=== PATIENT | male | born 1960 | race Caucasian/White ===

== ENCOUNTER 2016-07-15 01:35 | Emergency (ER) | payer OTHER ==
[~2016-07-15] VITALS: Ht 175.3 cm; Wt 76.8 kg
[~2016-07-15 01:35] MED LIST: ACETAMINOPHEN-120 ML PO; ALBUTEROL SULF8.5 GM IH; CITALOPRAM HBR20 MG PO; CLEOCIN150 MG PO; FLOVENT DISKUS1 DIS2 IH; FOLIC ACID; LIBRIUM25 MG PO; OXYCODONE H5 MG/5 ML PO; PEN-VEE K,VEET500 MG PO; PERIDEX1 ML MM; PREDNISONE10 MG PO; PREDNISONE20 MG PO; PROVENTIL,2.5 MG/3 M IH; THIAMINE HCL100 MG PO; TORADOL10 MG PO; VENTOLIN HFA18 GM IH; ZITHROMAX Z-PA250 MG PO
[2016-07-15 01:39] VITALS: BP 118/78
== END 2016-07-15 02:45 | disposition left against medical advice (07) ==
LOC: EME 01:35
DX: M79.661 Pain in right lower leg (principal); Z53.21 Procedure and treatment not carried out due to patient leaving prior to being seen by health care provider
CPT/HCPCS: 93971

== ENCOUNTER → 2016-08-20 12:40 | Emergency (ER) | payer OTHER ==
[~2016-08-20] VITALS: Ht 175.3 cm; Wt 74.1 kg
[~2016-08-20 12:40] MED LIST changes: +FLOVENT DISKUS1 DISK IH; +MOTRIN800 MG PO; +NEURONTIN100 MG PO; +NORVASC10 MG PO; +ROBAXIN500 MG PO; +ULTRAM50 MG PO; +ZESTRIL10 MG PO
[2016-08-20 12:47] VITALS: BP 100/69
== END | disposition left against medical advice (07) ==
LOC: EME 12:40
DX: M79.641 Pain in right hand (principal); Z91.81 History of falling; F10.99 Alcohol use, unspecified with unspecified alcohol-induced disorder; Z53.21 Procedure and treatment not carried out due to patient leaving prior to being seen by health care provider

== ENCOUNTER 2016-08-24 14:15 | Inpatient (IN) | payer OTHER ==
[~2016-08-24] VITALS: Ht 177.8 cm; Wt 71.0 kg
[~2016-08-24 14:15] MED LIST changes: -FLOVENT DISKUS1 DISK IH; -MOTRIN800 MG PO; -NEURONTIN100 MG PO; -NORVASC10 MG PO; -ROBAXIN500 MG PO; -ULTRAM50 MG PO; -ZESTRIL10 MG PO
[2016-08-24 15:34] LABS: EOSINOPHIL (%) 0.3 % (0-5); HEMATOCRIT 42.6 % (38.0-50.0); IMMATURE GRANULOCYTE (%) 0.2 % (0.0-0.7); IMMATURE GRANULOCYTE COUNT 0.1 K/uL; MCHC 35.4 G/DL (30.0-36.0); MCV 90.3 FL (86-99); MEAN PLAT.VOLUME 9.7 uM^3 (9.0-12.4); MONOCYTE (%) 14.5 % (3-12); MONOCYTE COUNT 0.8 K/uL (0-0.8); NEUTROPHIL (%) 66.9 % (45-76); NEUTROPHIL COUNT 3.9 K/uL (1.8-6.4); PLATELET COUNT 95 K/uL (156-360); RBC DIS.WIDTH-SD 51.4 % (39-53); RED BLOOD COUNT 4.72 M/uL (4.00-5.50); WHITE BLOOD COUNT 5.8 K/uL (4.1-10.2)
[2016-08-24 15:44] LABS: CHLORIDE 104 mEq/L (99-109); SODIUM 140 mEq/L (136-147)
[2016-08-24 15:46] LABS: GLUCOSE 89 mg/dL (70-99)
[2016-08-24 15:48] LABS: ANION GAP 14 MEQ/L (2-14); TOTAL BILIRUBIN 0.7 mg/dL (0.0-1.0)
[2016-08-24 15:49] LABS: SERUM ETHYL ALCOHOL 384 mg/dL
[2016-08-24 15:50] LABS: ALKALINE PHOSPHATASE 125 IU/L (3-129); GFR ESTIMATE (CALCULATED) > 59 mL/min/
[2016-08-24 15:51] LABS: UREA NITROGEN (BUN) 8 mg/dL (9-23)
[2016-08-25] MEDS ORDERED: ULTRAM50 MG PO (08:16)
[2016-08-25] MEDS ORDERED: FLOVENT DISKUS1 DISK IH (08:17)
[2016-08-25] MEDS ORDERED: ZESTRIL10 MG PO (08:18)
[2016-08-25] MEDS ORDERED: MOTRIN800 MG PO (08:18)
[2016-08-25] MEDS ORDERED: NORVASC10 MG PO (08:18)
[2016-08-25] MEDS ORDERED: VENTOLIN HFA18 GM IH (08:19)
[2016-08-25] MEDS ORDERED: NEURONTIN100 MG PO (08:19)
[2016-08-25] MEDS ORDERED: ROBAXIN500 MG PO (08:20)
[2016-08-25 11:42] VITALS: BP 141/97
[2016-08-25 11:47] VITALS: BP 141/97
[2016-08-25 11:52] LABS: ADD MIUA? YES; BILIRUBIN NEGATIVE; BLOOD NEGATIVE; COLOR YELLOW ((YELLOW)); GLUCOSE (STRIP) NEGATIVE; KETONES NEGATIVE; LEUKOCYTES NEGATIVE; NITRITE NEGATIVE; PROTEIN (STRIP) 30; SPECIFIC GRAVITY 1.019 (1.000-1.030)
[2016-08-25 12:03] LABS: AMPHETAMINE NEGATIVE (500 ng/mL); BARBITURATES NEGATIVE (200 ng/mL); BENZODIAZEPINES PRESUMPTIVE POSITIVE (150 ng/mL); COCAINE NEGATIVE (150 ng/mL); INTERNAL CONTROLS VALID? YES; METHADONE NEGATIVE (200 ng/mL); METHAMPHETAMINE NEGATIVE (500 ng/mL); OPIATES (MORPHINE) NEGATIVE (100 ng/mL); OXYCODONE NEGATIVE (100 ng/mL); PHENCYCLIDINE NEGATIVE (25 ng/mL); PROPOXYPHENE NEGATIVE (300 ng/mL); THC CANNABINOIDS NEGATIVE (50 ng/mL); TRICYCLIC ANTIDEPRESSANTS NEGATIVE (300 ng/mL)
[2016-08-25 12:04] LABS: ADD MEDTOX COMMENT Y
[2016-08-25 12:12] LABS: BACTERIA NONE SEEN /HPF; EPITHELIAL CELLS RARE /HPF; MUCUS TRACE /LPF; UCUL ADDED? NO; WHITE BLOOD CELLS 0-5 /HPF (0-5)
[2016-08-25 13:00] LABS: BENZODIAZEPINES QUANT VALUE 0 NG/ML
[2016-08-25 13:02] LABS: BENZODIAZEPINES, URINE SCREEN Negative (200 ng/mL)
[2016-08-25 15:58] VITALS: BP 157/78
[2016-08-25 20:27] VITALS: BP 137/84
[2016-08-26 08:08] VITALS: BP 126/83
[2016-08-26 15:57] VITALS: BP 126/83
[2016-08-27 07:55] VITALS: BP 136/84
[2016-08-27] MEDS ORDERED: CITALOPRAM HBR20 MG PO (09:33)
== END 2016-08-27 12:00 | disposition home or self-care (01) | DRG 897 ==
LOC: EME → EDBD 14:15 → 1WEST 08-25 10:37 → EDOF 08-25 10:37 → 1WEST 08-25 11:33
PROVIDERS: Emergency Medicine
DX: F10.230 Alcohol dependence with withdrawal, uncomplicated (principal); F10.229 Alcohol dependence with intoxication, unspecified; Y90.8 Blood alcohol level of 240 mg/100 ml or more; R45.851 Suicidal ideations; F32.9 Major depressive disorder, single episode, unspecified; I10 Essential (primary) hypertension; F17.210 Nicotine dependence, cigarettes, uncomplicated
CPT/HCPCS: 71020; 80053; 81003; 84999; 85025; 90839; 94640; 94640 76; 99202; 99281; 99285; G0480